=== PATIENT | female | born 1975 | race Caucasian/White ===

== ENCOUNTER → 2017-02-09 | Outpatient (CLI) | payer BC ==
[~2017-02-09] MED LIST: SULF1TAB38 PO
--- NOTE | 2017-02-12 10:39 | Diagnostic Imaging Report ---
INDICATION: Screening mammogram. COMPARISON: None, baseline. TECHNIQUE: Digital screening mammography was obtained with CAD. 3-dimensional tomosynthesis images were reviewed. FINDINGS: Scatter fibroglandular densities are present. There is no mass or suspicious calcification. IMPRESSION: Stable screening mammogram. No malignancy. ACR BI-RADS Category 1: Negative. Result letter will be mailed to the patient. Note: At least 10% of breast cancer is not imaged by mammography. Dictated by: Dictated on workstation # [id number]
== END ==
LOC: RAD 10:36
PROVIDERS: ATTEND Obstetrics & Gynecology
DX: Z12.31 Encounter for screening mammogram for malignant neoplasm of breast (principal)
CPT/HCPCS: 77067

== ENCOUNTER → 2017-02-23 | Outpatient (CLI) | payer BC ==
--- NOTE | 2017-02-23 16:13 | Diagnostic Imaging Report ---
PROCEDURE: US left lower extremity venous. TECHNIQUE: Multiple real-time grayscale images were obtained over the left lower extremity in various projections. Additional duplex Doppler and color Doppler images were also obtained. INDICATION: Left leg pain. FINDINGS: Color Doppler imaging of the left lower extremity shows normal color flow enhancement from the external iliac vein throughout the lower extremity to the ankle. Calf compression shows normal augmentation of flow at the popliteal level. IMPRESSION: Normal left lower extremity color duplex venous ultrasound. Dictated by: Dictated on workstation # [id number]
== END ==
LOC: RAD 15:15
PROVIDERS: ATTEND Family Medicine
DX: M79.662 Pain in left lower leg (principal)

== ENCOUNTER → 2017-07-25 | Outpatient (CLI) | payer BC ==
--- NOTE | 2017-07-25 16:02 | Diagnostic Imaging Report ---
PROCEDURE: US right lower extremity venous. TECHNIQUE: Multiple Real-time grayscale images were obtained over the right lower extremity in various projections. Additional duplex Doppler and color Doppler images were also obtained. INDICATION: Right leg pain. FINDINGS: Normal venous flow is seen within the right common femoral and superficial femoral vein; however, there does appear to be occlusive thrombosis of the right popliteal vein. Flow is seen within the tibioperoneal venous trunk. IMPRESSION: Focal occlusive thrombosis of the right popliteal vein. Dictated by: Dictated on workstation # [id number]
== END ==
LOC: RAD 15:18
PROVIDERS: ATTEND Nurse Practitioner Family
DX: I82.431 Acute embolism and thrombosis of right popliteal vein (principal)

== ENCOUNTER 2018-06-14 19:04 | Emergency (ER) | payer BC ==
[~2018-06-14] VITALS: Ht 175.3 cm; Wt 108.9 kg
--- OUTSIDE RECORDS SUMMARY | 2018-06-14 19:09 | XMS REPORT | Clinical Summary ---
Author Author [facility] Organization [facility] Address Unknown Phone Unavailable Care Team Providers Care Visitor Services Technician Name Role Phone Hamzah Narayan MD Unavailable Source Comments Some departments are not documenting in the electronic medical record. If you do not see the information that you expected, contact Release of Information in the Health Information Management department at [phone] for further assistance in locating additional records.[facility] Allergies No Known Allergies Medications End Date Status Medication Sig Dispensed Refills Start Date Active acetaZOLAMIDE (DIAMOX Take 500 mg 0 SEQUELS) 500 mg capsule by mouth twice daily. Active TRAMADOL HCL (TRAMADOL Take by 0 PO) mouth. Active IBUPROFEN PO Take by 0 mouth. Active NAPROXEN SODIUM (ALEVE Take by 0 PO) mouth. Active Problems Problem Noted Date Headache 07/10/2014 Papillitis 07/10/2014 Family History Medical History Relation Name Comments Unknown to Patient Brother Unknown to Patient Daughter Unknown to Patient Father Unknown to Patient Maternal Grandfather Unknown to Patient Maternal Grandmother Unknown to Patient Mother Unknown to Patient Paternal Grandfather Unknown to Patient Paternal Grandmother Unknown to Patient Son Amblyopia Neg Hx Autoimmune Disease Neg Hx Blindness Neg Hx Cancer Neg Hx Cataract Neg Hx Coronary Artery Disease Neg Hx Diabetes Neg Hx Glaucoma Neg Hx Hypertension Neg Hx Macular Degen Neg Hx Neurologic Disorder Neg Hx Retinal Detachment Neg Hx Strabismus Neg Hx Stroke Neg Hx Thyroid Disease Neg Hx Relation Name Status Comments Brother Daughter Father Maternal Grandfather Maternal Grandmother Mother Paternal Grandfather Paternal Grandmother Son Social History Date Tobacco Use Types Packs/Day Years Used Quit: 06/25/2003 Former Smoker 0.5 2 Alcohol Use Drinks/Week oz/Week Comments Yes 14 Standard 7.0 drinks or equivalent Sex Assigned at Date Recorded Not on file Industry Job Start Date Occupation Not on file Not on file Not on file Travel End Travel History Travel Start No recent travel history available. 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
--- OUTSIDE RECORDS SUMMARY | 2018-06-14 19:09 | XMS REPORT | Continuity of Care Document ---
Author Author [facility] Address Unknown Phone Unavailable Allergies Active Description Code Type Severity Reaction Onset Reported/Identified Relationship to Patient Clinical Status Yes NO KNOWN DRUG ALLERGIES NO KNOWN DRUG ALLERG UNKNOWN Yes NO KNOWN DRUG ALLERGIES UNKNOWN NO KNOWN DRUG ALLERG Yes No Known Drug Allergies [id number] Drug Allergy Unknown N/A 08/18/2012 Medications Medication Packaging Start Date Stop Date Route Dosage Sig LACTATED RINGERS 1000CC IV BAG INJ ml 10/24/2016 10/31/2016 CONTINUOUSEVERY 0 Hour CEFAZOLIN VIAL INJ 1 GM (ANCEF) GM 10/24/2016 10/24/2016 ONCE&0915 FENTANYL INJ 100 MCG/2CC VIAL MCG 10/24/2016 10/24/2016 ONCE&1042 FENTANYL INJ 100 MCG/2CC VIAL MCG 10/24/2016 10/24/2016 ONCE&1057 MORPHINE SYRINGE INJ 2 MG/CC MG 07/201610/24/2016 ONCE&1104 MORPHINE SYRINGE INJ 2 MG/CC MG 07/201610/24/2016 ONCE&1111 MORPHINE SYRINGE INJ 2 MG/CC MG 07/201610/24/2016 ONCE&1120 DIAZEPAM SYRINGE INJ 5 MG/CC (VALIUM SYRINGE) MG 10/24/2016 10/24/2016 ONCE&1142 ALPRAZOLAM TAB 0.25 MG (XANAX) MG 07/28/2017 07/28/2017 PRN ONCE NORMAL SALINE 500CC IV BAG INJ 0.9 % (NS 500CC IV BAG) ml 07/28/2017 07/28/2017 ONCE&1732 Problems Date Dx Coded Attending Type Code Diagnosis Diagnosed By 08/18/2012 Ot 564.00 UNSPEC CONSTIPATION 08/18/2012 Ot 724.2 LUMBAGO 08/18/2012 Ot 789.00 ABDOMINAL PAIN, UNSPECIFIED SITE 09/24/2012 Ot 564.00 UNSPEC CONSTIPATION 05/25/2014 FABIO TRUONG DO 784.0 HEADACHE 07/24/2014 ORENDER DO, SHAWNEE S Ot 368.9 07/24/2014 ORENDER DO, SHAWNEE S Ot 377.00 07/24/2014 ORENDER DO, SHAWNEE S Ot 377.00 06/22/2015 Ot V72.84 06/22/2015 ORENDER DO, SHAWNEE S Ot 368.9 06/22/2015 ORENDER DO, SHAWNEE S Ot 377.00 06/22/2015 ORENDER DO, SHAWNEE S Ot 377.00 07/07/2015 ORENDER DO, SHAWNEE S Ot M79.641 05/15/2016 Ot V72.84 EXAM PRE- OPERATIVE NOS 05/15/2016 ORENDER DO, SHAWNEE S Ot 368.9 VISUAL DISTURBANCE NOS 05/15/2016 ORENDER DO, SHAWNEE S Ot 377.00 PAPILLEDEMA NOS 05/15/2016 ORENDER DO, SHAWNEE S Ot 377.00 PAPILLEDEMA NOS 05/15/2016 ORENDER DO, SHAWNEE S Ot M79.641 PAIN IN RIGHT HAND 05/16/2016 ORENDER DO, SHAWNEE S Ot M54.5 LOW BACK PAIN 06/14/2016 ORENDER DO, SHAWNEE S Ot M54.5 LOW BACK PAIN 02/09/2017 Ot V72.84 EXAM PRE- OPERATIVE NOS 02/09/2017 ORENDER DO, SHAWNEE S Ot 368.9 VISUAL DISTURBANCE NOS 02/09/2017 ORENDER DO, SHAWNEE S Ot 377.00 PAPILLEDEMA NOS 02/09/2017 ORENDER DO, SHAWNEE S Ot 377.00 PAPILLEDEMA NOS 02/09/2017 ORENDER DO, SHAWNEE S Ot M79.641 PAIN IN RIGHT HAND 02/09/2017 ORENDER DO, SHAWNEE S Ot M54.5 LOW BACK PAIN 02/27/2017 LUCAS STOUT DO Ot Z12.31 ENCNTR SCREEN MAMMOGRAM FOR MALIGNANT NE 02/28/2017 LEO MEZA DO S Ot M79.662 PAIN IN LEFT LOWER LEG 03/07/2017 LEO MEZA DO S Ot M79.662 PAIN IN LEFT LOWER LEG 07/26/2017 HOWIE ESCOBAR APRN Ot I82.431 ACUTE EMBOLISM AND THROMBOSIS OF RIGHT P 07/28/2017 Raymond Santos 300.00 ANXIETY STATE, UNSPECIFIED 07/28/2017 Raymond Santos A 415.19 OTHER PULMONARY EMBOLISM AND INFARCTION 07/28/2017 Raymond Santos 453.41 ACUTE VENOUS EMBOLISM AND THROMBOSIS OF DEEP VESSELS OF PROXIMAL LOWER EXTREMITY 07/28/2017 Raymond Santos 786.5 CHEST PAIN 07/28/2017 Raymond Santos F41.9 ANXIETY DISORDER, UNSPECIFIED 07/28/2017 Raymond Santos A I26.99 OTHER PULMONARY EMBOLISM WITHOUT ACUTE COR PULMONALE 07/28/2017 Raymond Santos I82.431 ACUTE EMBOLISM AND THROMBOSIS OF RIGHT POPLITEAL VEIN 07/28/2017 Raymond Santos R07.89 OTHER CHEST PAIN 08/08/2017 HOWIE ESCOBAR APRN Ot I82.431 ACUTE EMBOLISM AND THROMBOSIS OF RIGHT P 2018 Leo Meza 401.9 UNSPECIFIED ESSENTIAL HYPERTENSION 2018 Leo Meza I10 ESSENTIAL (PRIMARY) HYPERTENSION 2018 Leo Meza 401.9 UNSPECIFIED ESSENTIAL HYPERTENSION 2018 Leo Meza I10 ESSENTIAL (PRIMARY) HYPERTENSION 06/14/2018 KIYA NAVAS DOQUELINE S Ot 368.9 VISUAL DISTURBANCE NOS 06/14/2018 FRANCOISNDER , SHAWNEE S Ot 377.00 PAPILLEDEMA NOS 06/14/2018 FRANCOISNDER , SHAWNEE S Ot 377.00 PAPILLEDEMA NOS 06/14/2018 JARRELLER KIYA JASMINESHAWNEE S Ot M79.641 PAIN IN RIGHT HAND 06/14/2018 SHAWNEE NAVAS DO S Ot M54.5 LOW BACK PAIN 06/14/2018 LUCAS STOUT DO Ot Z12.31 ENCNTR SCREEN MAMMOGRAM FOR MALIGNANT NE 06/14/2018 LEO MEZA DO Ot M79.662 PAIN IN LEFT LOWER LEG 06/14/2018 HOWIE ESCOBAR APRN Ot I82.431 ACUTE EMBOLISM AND THROMBOSIS OF RIGHT P Procedures There is no data. Results Test Result Range Hepatic Panel - 09/25/16 17:29 Albumin 3.5 g/dL 3.6-5.1 ALP 63 U/L 35-130 ALT 10 U/L 6-45 AST 16 U/L 2-40 DBil 0.1 mg/dL 0.0-0.2 GGT 35 U/L 5-40 Globulin 2.8 g/dL 2.3-3.5 TBil 0.3 mg/dL 0.2-1.2 TP 6.3 g/dL 6.0-8.3 Mycoplasma - 10/06/16 10:12 Mycoplasma Negative Negative MRSA Screen - 10/24/16 08:00 FINAL CULTURE RESULTS MRSA Negative Nasal Culture MEDIA PLATED Setup at 08:56 on 10/24/2016 Test-Serum - 10/24/16 08:43 Preg Test-S Negative Negative Surgical Pathology - 10/24/16 12:16 Surg Path Sent to [facility] - 02/23/17 13:27 Anion Gap 15 6-14 BUN 17 mg/dL 5-25 Calcium 9.2 mg/dL 8.3-10.4 Chloride 105 mmol/L 95-114 CO2 22 mEq/L 22-33 Creat 0.62 mg/dL 0.50-1.50 eGFR 105 mL/min/1.73m2 >59 Glucose 87 mg/dL 70-110 Osmo 286 280-295 Potassium 4.0 mmol/L 3.5-5.3 Sodium 138 mmol/L 134-148 Magnesium - 02/23/17 13:27 Mg++ 1.6 mg/dL 1.6-2.6 Cardiac Panel - 07/28/17 12:24 CK 47 U/L 26-174 CK-MB 0.8 ng/ml 0.0-9.2 Myoglobin 17.9 ng/ml 1.6-106.0 Troponin 0.298 ng/mL 0.000-0.400 Cardiac Panel - 07/28/17 14:50 CK 44 U/L 26-174 CK-MB 0.8 ng/ml 0.0-9.2 Myoglobin 20.2 ng/ml 1.6-106.0 Troponin 0.293 ng/mL 0.000-0.400 Protime - 09/13/17 13:39 INR 2.3 1.0-4.0 Protime 26.8 Sec 9.9-12.8 Protime - 09/28/17 15:22 INR 2.6 1.0-4.0 Protime 32.2 Sec 9.9-12.8 Protime - 10/11/17 17:40 INR 2.3 1.0-4.0 Protime 28.4 Sec 9.9-12.8 Protime - 10/30/17 18:23 INR 2.5 1.0-4.0 Protime 28.8 Sec 9.9-12.8 Protime - 11/16/17 12:24 INR 2.6 1.0-4.0 Protime 30.3 Sec 9.9-12.8 Protime - 11/29/17 07:11 INR 3.3 1.0-4.0 Protime 39.1 Sec 9.9-12.8 Protime - 12/06/17 18:38 INR 1.8 1.0-4.0 Protime 21.5 Sec 9.9-12.8 Protime - 12/17/17 18:14 INR 1.8 1.0-4.0 Protime 20.8 Sec 9.9-12.8 Protime - 12/25/17 17:50 INR 2.6 1.0-4.0 Protime 29.9 Sec 9.9-12.8 Sed Rate - 01/09/18 10:06 Sed Rate 8 mm/hr 9-15 Urine Culture - 01/09/18 10:06 PRELIM CULTURE RESULTS No Growth 24 hours FINAL CULTURE RESULTS Probable Skin Contaminant No Further Workup done MEDIA PLATED Setup at 15:21 on 01/09/2018 CULTURE SOURCE void [employer] [facility] Spotted Fever, IgM - 01/09[facility]18 [facility] 0.40 INDEX 0.00-0.89 Protime - 01/21/18 18:50 INR 2.1 1.0-4.0 Protime 24.4 Sec 9.9-12.8 Protime - 02/04/18 07:45 INR 2.1 1.0-4.0 Protime 24.1 Sec 9.9-12.8 Protime - 02/27/18 19:07 INR 2.4 1.0-4.0 Protime 27.7 Sec 9.9-12.8 Protime - 04/02/18 16:47 INR 2.4 1.0-4.0 Protime 28.2 Sec 9.9-12.8 Protime - 04/22/18 17:56 INR 2.9 1.0-4.0 Protime 34.0 Sec 9.9-12.8 Protime - 05/01/18 17:34 INR 2.3 1.0-4.0 Protime 26.7 Sec 9.9-12.8 Lipid Panel - 05/06/18 10:39 C/HDL 2.8 3.7-6.7 Cholesterol 131 mg/dL 100-240 HDL 47 mg/dL 30-85 LDL-Calculated 58 mg/dL 0-100 Trig 131 mg/dL 35-160 VLDL 26 mg/dL 0-42 Protime - 05/20/18 17:34 INR 2.5 1.0-4.0 Protime 30.2 Sec 9.9-12.8 Protime - 06/11/18 12:44 INR 2.0 1.0-4.0 Protime 23.2 Sec 9.9-12.8 Encounters ACCT No. Visit Date/Time Discharge Status Pt. Type Provider Facility Loc./Unit Complaint [id number] 05/25/2014 12:46:00 05/25/2014 23:59:59 CLS Outpatient FABIO TRUONG DO [id number] 06/14/2018 17:47:00 06/14/2018 18:03:00 DIS Outpatient Heather Grimaldo [id number] 06/11/2018 12:32:00 06/11/2018 23:59:00 DIS Outpatient Anis, Amir [id number] 05/20/2018 17:33:00 05/20/2018 23:59:00 DIS Outpatient Anis, Amir [id number] 2018 10:37:00 2018 23:59:00 DIS Outpatient Leo Meza [id number] 05/01/2018 17:32:00 05/01/2018 23:59:00 DIS Outpatient Anis, Amir [id number] 04/22/2018 17:55:00 04/22/2018 23:59:00 DIS Outpatient Anis, Amir [id number] 04/02/2018 16:46:00 04/02/2018 23:59:00 DIS Outpatient Anis, Amir [id number] 02/27/2018 19:04:00 02/27/2018 23:59:00 DIS Outpatient Anis, Amir [id number] 02/04/2018 07:38:00 02/04/2018 23:59:00 DIS Outpatient ISRAEL TAVERAS [id number] 01/21/2018 19:28:00 01/21/2018 23:59:00 DIS Outpatient Anis, Amir [id number] 01/09/2018 09:48:00 01/09/2018 23:59:00 DIS Outpatient Leo Meza [id number] 01/03/2018 12:25:00 01/03/2018 23:59:00 DIS Outpatient Anis, Amir [id number] 12/25/2017 17:48:00 12/25/2017 23:59:00 DIS Outpatient Anis, Amir [id number] 12/17/2017 18:13:00 12/17/2017 23:59:00 DIS Outpatient Anis, Amir [id number] 12/06/2017 18:37:00 12/06/2017 23:59:00 DIS Outpatient Anis, Amir [id number] 11/29/2017 07:08:00 11/29/2017 23:59:00 DIS Outpatient MARQUEZ, DULCE MARIA [id number] 11/16/2017 12:21:00 11/16/2017 23:59:00 DIS Outpatient MARQUEZ, DULCE MARIA [id number] 10/30/2017 18:21:00 10/30/2017 23:59:00 DIS Outpatient Anis, Amir [id number] 10/11/2017 17:38:00 10/11/2017 23:59:00 DIS Outpatient Anis, Amir [id number] 09/28/2017 15:17:00 09/28/2017 23:59:00 DIS Outpatient Anis, Amir [id number] 09/13/2017 13:31:00 09/13/2017 23:59:00 DIS Outpatient Anis, Amir [id number] 07/28/2017 11:36:00 07/28/2017 17:25:00 DIS Outpatient [facility] [id number] 02/23/2017 13:22:00 02/23/2017 23:59:00 DIS Outpatient Ann Romero [id number] 10/30/2016 16:26:00 10/30/2016 23:59:00 DIS Outpatient Olga Noriega [id number] 10/24/2016 00:00:00 10/24/2016 12:35:00 DIS Outpatient Olga Noriega [id number] 10/19/2016 13:54:00 10/19/2016 13:54:00 CAN Outpatient Olga Noriega [id number] 10/06/2016 10:07:00 10/06/2016 23:59:00 DIS Outpatient Ann Romero [id number] 09/25/2016 17:13:00 09/25/2016 23:59:00 DIS Outpatient Olga Noriega [id number] 09/20/2016 10:02:00 09/20/2016 23:59:00 DIS Outpatient Leo Meza [id number] 10/23/2016 09:31:26 Document Registration [id number] 07/25/2017 15:18:00 07/25/2017 23:59:59 CLS Outpatient LUZHOWIE APRN [facility] RAD RIGHT LOWER LEG PAIN [id number] 02/23/2017 15:15:00 02/23/2017 23:59:59 CLS Outpatient LIZLEO KAMARA DO S [facility] RAD LEFT LEG PAIN [id number] 02/09/2017 10:36:00 02/09/2017 23:59:59 CLS Outpatient LUCAS STOUT DO [facility] RAD SCREENING [id number] 05/15/2016 13:50:00 05/15/2016 23:59:59 CLS Outpatient ORENDER , SHAWNEE S [facility] RAD M54.5 [id number] 06/22/2015 08:10:00 06/22/2015 23:59:59 CLS Outpatient ORENDER DO, SHAWNEE S [facility] RAD THUMB,WRIST,HAND PAIN [id number] 07/01/2014 15:34:00 07/01/2014 23:59:59 CLS Outpatient ORENDER DO, SHAWNEE S [facility] RAD CEPHALGIA PAPILLEDEMA [id number] 06/29/2014 15:16:00 06/29/2014 23:59:59 CLS Outpatient FRANCOISNDER , SHAWNEE S [facility] RAD PAPILLEDMA,VISION CHANGES [id number] 06/14/2018 19:05:00 ACT Emergency RENE CASTANEDA DO [facility] ER LT LEG SWELLING,HX OF BLOOD CLOTS [id number] 09/24/2012 12:31:00 Document Registration [id number] 09/19/2012 07:47:00 Document Registration [id number] 08/18/2012 09:50:00 Document Registration 06/201612/01/2016 20:07:00 12/01/2016 23:59:59 Shawnee Patel
--- NOTE | 2018-06-14 20:26 | ED Lower Extremity ---
General Chief Complaint: Lower Extremity Stated Complaint: LT LEG SWELLING,HX OF BLOOD CLOTS Nursing Triage Note: Pt arrived with left leg pain and possible DVT. Pt has past medical history of blood clots. Pt is on warfarin and has taken it constantly and daily. Pt stated she has not missed any doses. Pt stated her left thigh had a bug bite and was put on doxy. When she went to doctor they stated she had mild staph infection. Pt stated pain started about a week ago. It is anterior left thigh that has lump, but same leg as bug bite/staph. Pt stated pain with cramping is same pain as when she had previous blood clot. Nursing Sepsis Screen: No Definite Risk Allergies and Home Medications Allergies Coded Allergies: No Known Drug Allergies (Unverified , 08/18/12) Home Medications Trimethoprim/Sulfamethoxazole 1 Ea Tablet, 1 EA PO BID, (Reported) Past Dctebnt-Xbwlfn-Evuhxa Hx Patient Social History Alcohol Use: Occasionally Uses Recreational Drug Use: No Smoking Status: Never a Smoker Recent Foreign Travel: No Contact w/Someone Who Travel: No Recent Infectious Disease Expo: No Recent Hopitalizations: No Physical Abuse: No Sexual Abuse: No Mistreated: No Fear: No Seasonal Allergies Seasonal Allergies: No Past Medical History Surgeries: Yes Gallbladder Respiratory: No Cardiac: No Neurological: No Last Menstrual Period: May 24, 2018 Reproductive Disorders: No Genitourinary: No Gastrointestinal: No Musculoskeletal: No Endocrine: No HEENT: No Cancer: No Psychosocial: No Integumentary: No Physical Exam Vital Signs Vital Signs - First Documented 06/14/18 19:12 Temp 98.0 Pulse 88 Resp 20 B/P (MAP) 136/91 (106) Pulse Ox 98 O2 Delivery Room Air Capillary Refill : Less Than 3 Seconds Height, Weight, BMI Height: 5'9.00" Weight: 240lbs. oz. 108.367025vk; BMI Method:Stated Progress/Results/Core Measures Results/Orders Vital Signs/I&O 06/14/18 19:12 Temp 98.0 Pulse 88 Resp 20 B/P (MAP) 136/91 (106) Pulse Ox 98 O2 Delivery Room Air Blood Pressure Mean: 106 Departure Impression Primary Impression: PAIN AND SWELLNG OF LEFT LEG Disposition: 01 HOME, SELF-CARE Condition: Stable Departure-Patient Inst. Referrals: BONILLA VALERIO DO (PCP/Family) Primary Care Physician Patient Instructions: NO INSTRUCTIONS GIVEN Add. Discharge Instructions: CONTINUE YOUR MEDICATIONS PRESCRIBED FOLLOW UP WITH DR. VALERIO ON SUNDAY OR GO TO A FACILITY THAT HAS ULTRASOUND CAPABILITY FOR FURTHER EVALUATION All discharge instructions reviewed with patient and/or family. Voiced understanding. RENE CASTANEDA DO Jun 14, 2018 20:26
[2018-06-14 20:30] VITALS: BP 127/88
== END 2018-06-14 20:30 | disposition home or self-care (01) ==
LOC: EDUNIT# 19:04 → ER 19:05
DX: M79.605 Pain in left leg (principal); M79.89 Other specified soft tissue disorders; Z79.01 Long term (current) use of anticoagulants
CPT/HCPCS: 99283

== ENCOUNTER 2019-02-12 15:14 | Outpatient (RCR) | payer BC ==
[2018-12-24 15:25] LABS: BASOPHILS % (AUTO) 0 % (0-10); EOSINOPHILS # (AUTO) 0.1 10^3/uL (0.0-0.3); EOSINOPHILS % (AUTO) 1 % (0-10); HEMATOCRIT 37 % (35-52); HEMOGLOBIN 11.7 G/DL (11.5-16.0); LYMPHOCYTES # (AUTO) 2.3 X 10^3 (1.0-4.0); LYMPHOCYTES % (AUTO) 25 % (12-44); MEAN CORPUSCULAR HEMOGLOBIN 27 PG (25-34); MEAN CORPUSCULAR HGB CONC 32 G/DL (32-36); MEAN CORPUSCULAR VOLUME 86 FL (80-99); MEAN PLATELET VOLUME 9.3 FL (7.4-10.4); MONOCYTES # (AUTO) 0.6 X 10^3 (0.0-1.0); MONOCYTES % (AUTO) 6 % (0-12); NEUTROPHILS # (AUTO) 6.1 X 10^3 (1.8-7.8); NEUTROPHILS % (AUTO) 67 % (42-75); PLATELET COUNT 304 10^3/uL (130-400); RED CELL DISTRIBUTION WIDTH 14.6 % (10.0-14.5); WHITE BLOOD COUNT 9.1 10^3/uL (4.3-11.0)
[2018-12-24 15:54] LABS: INR 2.2 (0.8-1.4); PROTHROMBIN TIME PATIENT 25.6 SEC (12.2-14.7)
[2019-02-12 16:03] LABS: INR 1.8 (0.8-1.4); PROTHROMBIN TIME PATIENT 21.7 SEC (12.2-14.7)
== END 2019-03-24 | disposition home or self-care (01) ==
LOC: ONC 15:14
PROVIDERS: ATTEND Internal Medicine Hematology & Oncology
DX: Z09 Encounter for follow-up examination after completed treatment for conditions other than malignant neoplasm (principal); Z86.711 Personal history of pulmonary embolism; Z86.718 Personal history of other venous thrombosis and embolism; I10 Essential (primary) hypertension; N92.0 Excessive and frequent menstruation with regular cycle; E66.9 Obesity, unspecified; Z68.37 Body mass index [BMI] 37.0-37.9, adult; Z79.01 Long term (current) use of anticoagulants; Z79.899 Other long term (current) drug therapy; Z79.82 Long term (current) use of aspirin
CPT/HCPCS: 36415; 81241; 82728; 85025; 85610; 99214

== ENCOUNTER → 2019-07-02 | Outpatient (CLI) | payer BC ==
[2019-07-02 09:56] LABS: BASOPHILS % (AUTO) 0 % (0-10); EOSINOPHILS # (AUTO) 0.3 10^3/uL (0.0-0.3); EOSINOPHILS % (AUTO) 2 % (0-10); HEMATOCRIT 39 % (35-52); HEMOGLOBIN 12.6 G/DL (11.5-16.0); LYMPHOCYTES % (AUTO) 20 % (12-44); MEAN CORPUSCULAR HEMOGLOBIN 28 PG (25-34); MEAN CORPUSCULAR HGB CONC 32 G/DL (32-36); MEAN CORPUSCULAR VOLUME 88 FL (80-99); MEAN PLATELET VOLUME 9.2 FL (7.4-10.4); MONOCYTES # (AUTO) 0.8 X 10^3 (0.0-1.0); MONOCYTES % (AUTO) 8 % (0-12); NEUTROPHILS # (AUTO) 7.1 X 10^3 (1.8-7.8); NEUTROPHILS % (AUTO) 70 % (42-75); PLATELET COUNT 251 10^3/uL (130-400); RED CELL DISTRIBUTION WIDTH 14.7 % (10.0-14.5); WHITE BLOOD COUNT 10.2 10^3/uL (4.3-11.0)
[2019-07-02 10:09] LABS: INR 2.3 (0.8-1.4); PROTHROMBIN TIME PATIENT 26.1 SEC (12.2-14.7)
[2019-07-02 10:17] LABS: ALANINE AMINOTRANSFERASE 22 U/L (0-55); ALBUMIN 3.6 GM/DL (3.2-4.5); ALKALINE PHOSPHATASE 72 U/L (40-136); BILIRUBIN,TOTAL 0.2 MG/DL (0.1-1.0); BUN/CREATININE RATIO 20; CALCIUM 8.5 MG/DL (8.5-10.1); CARBON DIOXIDE 21 MMOL/L (21-32); CHLORIDE 108 MMOL/L (98-107); CREATININE SERUM 0.69 MG/DL (0.60-1.30); GFR ESTIMATED > 60; GLUCOSE 100 MG/DL (70-105); SODIUM 138 MMOL/L (135-145); TOTAL PROTEIN 6.8 GM/DL (6.4-8.2)
== END ==
LOC: EDSTATUS 03-25 09:13 → ONC 09:30
PROVIDERS: ATTEND Internal Medicine Hematology & Oncology
DX: Z09 Encounter for follow-up examination after completed treatment for conditions other than malignant neoplasm (principal); Z86.711 Personal history of pulmonary embolism; Z86.718 Personal history of other venous thrombosis and embolism; I10 Essential (primary) hypertension; N92.0 Excessive and frequent menstruation with regular cycle; E66.9 Obesity, unspecified; Z68.37 Body mass index [BMI] 37.0-37.9, adult; Z79.01 Long term (current) use of anticoagulants; Z79.899 Other long term (current) drug therapy; Z79.82 Long term (current) use of aspirin
CPT/HCPCS: 80053; 85025; 85610; 99213

== ENCOUNTER → 2019-07-18 | Outpatient (CLI) | payer BC ==
--- NOTE | 2019-07-18 15:47 | Diagnostic Imaging Report ---
EXAMINATION: US Right Lower Extremity Venous Duplex. TECHNIQUE: Multiple real-time grayscale images were obtained over the right lower extremity in various projections. Additional spectral analysis and color Doppler duplex images were also obtained. HISTORY: Pain and swelling in the right leg. COMPARISON: 07/25/2017. FINDINGS: The right common femoral vein, deep femoral vein, superficial femoral vein and popliteal vein are patent with normal harding scale and doppler appearance. There is normal respiratory variation and augmentation. IMPRESSION: 1. No DVT of the right lower extremity. Dictated by: Dictated on workstation # [id number]
== END ==
LOC: RAD 13:46
PROVIDERS: ATTEND Nurse Practitioner Family
DX: M79.604 Pain in right leg (principal); Z79.01 Long term (current) use of anticoagulants

== ENCOUNTER → 2019-12-25 | Outpatient (CLI) | payer BC ==
--- NOTE | 2019-12-25 12:29 | Diagnostic Imaging Report ---
PROCEDURE: US Non-ob pelvis comp/trans. TECHNIQUE: Multiple realtime grayscale images were obtained of the pelvis in various projections endovaginally. Transabdominal imaging was also performed. INDICATION: Menorrhagia. The uterus is retroverted measuring 8.7 x 4.9 x 6.3 cm. Endometrium is abnormally thickened at 18 mm. There is significant heterogeneity to the endometrium but no abnormal vascularity. There is a uterine fibroid present posteriorly measuring 2.7 cm. Right ovary measures 1.4 x 1.2 x 1.5 cm and the left ovary measures 3.1 x 2.1 x 1.7 cm. There is blood flow to the ovaries. No adnexal mass is seen. There is a small amount of free fluid present in the cul-de-sac. IMPRESSION: 1. Uterine fibroid. 2. Abnormal appearance to the endometrium which is thickened and heterogeneous. While this could be secondary to hyperplasia, endometrial neoplasia cannot be entirely excluded. Dictated by: Dictated on workstation # [id number]
== END ==
LOC: RAD 09:30
PROVIDERS: ATTEND Obstetrics & Gynecology
DX: D25.9 Leiomyoma of uterus, unspecified (principal); N92.0 Excessive and frequent menstruation with regular cycle
CPT/HCPCS: 76830; 76856

== ENCOUNTER → 2020-01-20 | Outpatient (CLI) | payer BC ==
--- NOTE | 2020-01-21 09:50 | Diagnostic Imaging Report ---
EXAMINATION: Digital mammogram bilateral screening with CAD. INDICATION: Screening. COMPARISON: This study was compared to the prior exam of 02/09/2017. PERSONAL HISTORY: At this time, there are no current complaints. FINDINGS: There are scattered fibroglandular densities in both breasts which could obscure a lesion. Overall, there does not appear to have been any significant change when compared to the prior exam. No primary or secondary sign of malignancy is noted. IMPRESSION: 1. There is no evidence for malignancy. 2. The patient should have her annual bilateral screening mammogram on schedule in December 2020. ACR BI-RADS Category 1: Negative. Result letter will be mailed to the patient. Note: At least 10% of breast cancer is not imaged by mammography. Dictated by: Dictated on workstation # [id number]
== END ==
LOC: RAD 08:41
PROVIDERS: ATTEND Obstetrics & Gynecology
DX: Z12.31 Encounter for screening mammogram for malignant neoplasm of breast (principal)
CPT/HCPCS: 77063; 77067

== ENCOUNTER → 2020-02-11 | Outpatient (CLI) | payer BC ==
[2020-02-12 07:41] LABS: HEMATOCRIT 40 % (35-52); LYMPHOCYTES % (AUTO) 33 % (12-44); MEAN CORPUSCULAR HEMOGLOBIN 30 PG (25-34); MEAN CORPUSCULAR HGB CONC 33 G/DL (32-36); MEAN CORPUSCULAR VOLUME 91 FL (80-99); MEAN PLATELET VOLUME 8.9 FL (7.4-10.4); MONOCYTES % (AUTO) 8 % (0-12); NEUTROPHILS % (AUTO) 57 % (42-75); PLATELET COUNT 238 10^3/uL (130-400); RED CELL DISTRIBUTION WIDTH 14.5 % (10.0-14.5)
[2020-02-12 07:42] LABS: BASOPHILS % (AUTO) 0 % (0-10); EOSINOPHILS # (AUTO) 0.2 10^3/uL (0.0-0.3); EOSINOPHILS % (AUTO) 2 % (0-10); MONOCYTES # (AUTO) 0.7 X 10^3 (0.0-1.0); NEUTROPHILS # (AUTO) 5.1 X 10^3 (1.8-7.8)
[2020-02-12 07:43] LABS: BUN/CREATININE RATIO 22; CARBON DIOXIDE 21 MMOL/L (21-32); CHLORIDE 110 MMOL/L (98-107); CREATININE SERUM 0.64 MG/DL (0.60-1.30); GFR ESTIMATED > 60; GLUCOSE 99 MG/DL (70-105); POTASSIUM 4.2 MMOL/L (3.6-5.0); SODIUM 139 MMOL/L (135-145)
[2020-02-12 07:45] LABS: ALANINE AMINOTRANSFERASE 25 U/L (0-55); ALBUMIN 3.4 GM/DL (3.2-4.5); ALKALINE PHOSPHATASE 57 U/L (40-136); BILIRUBIN,TOTAL 0.3 MG/DL (0.1-1.0); CALCIUM 8.2 MG/DL (8.5-10.1); TOTAL PROTEIN 6.7 GM/DL (6.4-8.2)
== END ==
LOC: ONC 09:00
PROVIDERS: ATTEND Internal Medicine Hematology & Oncology
DX: I82.401 Acute embolism and thrombosis of unspecified deep veins of right lower extremity (principal); K64.5 Perianal venous thrombosis; D68.59 Other primary thrombophilia; I10 Essential (primary) hypertension; E61.1 Iron deficiency; Z79.01 Long term (current) use of anticoagulants; Z86.718 Personal history of other venous thrombosis and embolism; Z95.5 Presence of coronary angioplasty implant and graft
CPT/HCPCS: 80053; 82728; 85025; G0463; 99213

== ENCOUNTER → 2020-08-18 | Outpatient (CLI) | payer BC ==
[2020-08-18 13:48] LABS: BASOPHILS % (AUTO) 0 % (0-10); EOSINOPHILS # (AUTO) 0.1 10^3/uL (0.0-0.3); EOSINOPHILS % (AUTO) 1 % (0-10); HEMATOCRIT 34 % (35-52); HEMOGLOBIN 10.9 g/dL (11.5-16.0); LYMPHOCYTES # (AUTO) 2.3 10^3/uL (1.0-4.0); LYMPHOCYTES % (AUTO) 24 % (12-44); MEAN CORPUSCULAR HEMOGLOBIN 28 pg (25-34); MEAN CORPUSCULAR HGB CONC 32 g/dL (32-36); MEAN CORPUSCULAR VOLUME 87 fL (80-99); MEAN PLATELET VOLUME 9.2 fL (9.0-12.2); MONOCYTES # (AUTO) 0.6 10^3/uL (0.0-1.0); MONOCYTES % (AUTO) 7 % (0-12); NEUTROPHILS # (AUTO) 6.5 10^3/uL (1.8-7.8); NEUTROPHILS % (AUTO) 67 % (42-75); PLATELET COUNT 248 10^3/uL (130-400); WHITE BLOOD COUNT 9.7 10^3/uL (4.3-11.0)
[2020-08-18 14:05] LABS: INR 2.3 (0.8-1.4); PROTHROMBIN TIME PATIENT 25.4 SEC (12.2-14.7)
[2020-08-18 14:10] LABS: ALANINE AMINOTRANSFERASE 15 U/L (0-55); ALBUMIN 3.4 GM/DL (3.2-4.5); ALKALINE PHOSPHATASE 70 U/L (40-136); BILIRUBIN,TOTAL 0.2 MG/DL (0.1-1.0); BUN/CREATININE RATIO 20; CALCIUM 8.2 MG/DL (8.5-10.1); CARBON DIOXIDE 20 MMOL/L (21-32); CHLORIDE 107 MMOL/L (98-107); CREATININE SERUM 0.65 MG/DL (0.60-1.30); GFR ESTIMATED > 60; GLUCOSE 92 MG/DL (70-105); SODIUM 136 MMOL/L (135-145); TOTAL PROTEIN 6.6 GM/DL (6.4-8.2)
== END ==
LOC: ONC 13:32
PROVIDERS: ATTEND Internal Medicine Hematology & Oncology
DX: G08 Intracranial and intraspinal phlebitis and thrombophlebitis (principal); I82.401 Acute embolism and thrombosis of unspecified deep veins of right lower extremity; I26.99 Other pulmonary embolism without acute cor pulmonale; D50.9 Iron deficiency anemia, unspecified; I10 Essential (primary) hypertension; Z79.01 Long term (current) use of anticoagulants
CPT/HCPCS: 80053; 82728; 85025; 85610; G0463; 99213

== ENCOUNTER → 2021-05-05 | Outpatient (CLI) | payer BC ==
[2021-05-05 15:05] LABS: BASOPHILS % (AUTO) 0 % (0-10); EOSINOPHILS # (AUTO) 0.2 10^3/uL (0.0-0.3); EOSINOPHILS % (AUTO) 3 % (0-10); HEMATOCRIT 41 % (35-52); HEMOGLOBIN 12.8 g/dL (11.5-16.0); LYMPHOCYTES # (AUTO) 2.1 10^3/uL (1.0-4.0); LYMPHOCYTES % (AUTO) 24 % (12-44); MEAN CORPUSCULAR HEMOGLOBIN 28 pg (25-34); MEAN CORPUSCULAR HGB CONC 32 g/dL (32-36); MEAN CORPUSCULAR VOLUME 88 fL (80-99); MONOCYTES # (AUTO) 0.5 10^3/uL (0.0-1.0); MONOCYTES % (AUTO) 6 % (0-12); NEUTROPHILS # (AUTO) 6.1 10^3/uL (1.8-7.8); NEUTROPHILS % (AUTO) 68 % (42-75); PLATELET COUNT 291 10^3/uL (130-400)
[2021-05-05 15:21] LABS: INR 1.9 (0.8-1.4); PROTHROMBIN TIME PATIENT 22.3 SEC (12.2-14.7)
[2021-05-05 15:22] LABS: ALBUMIN 3.8 GM/DL (3.2-4.5); BILIRUBIN,TOTAL 0.3 MG/DL (0.1-1.0); CREATININE SERUM 0.69 MG/DL (0.60-1.30); POTASSIUM 3.7 MMOL/L (3.6-5.0); TOTAL PROTEIN 7.1 GM/DL (6.4-8.2)
== END ==
LOC: ONC 15:01
PROVIDERS: ATTEND Internal Medicine Hematology & Oncology
DX: D50.0 Iron deficiency anemia secondary to blood loss (chronic) (principal); I10 Essential (primary) hypertension; E66.9 Obesity, unspecified; Z79.01 Long term (current) use of anticoagulants; Z86.718 Personal history of other venous thrombosis and embolism
CPT/HCPCS: 80053; 82728; 85025; 85610; G0463; 99213

== ENCOUNTER → 2022-03-28 | Outpatient (CLI) | payer BC ==
--- NOTE | 2022-03-28 10:26 | Diagnostic Imaging Report ---
INDICATION: Knee pain. EXAMINATION: Left knee MRI without contrast on 03/28/2022. FINDINGS: There are changes of tendinosis throughout the patellar tendon with no focal tears. The visualized distal quadriceps tendon is intact. There is diffuse degenerative signal throughout the ACL which is intact. The PCL is intact. The MCL is somewhat thickened, perhaps due to an old injury, but appears intact. Minimal adjacent edema proximally could represent an MCL sprain. There is no discontinuity. The lateral collateral ligamentous complex appears intact. There is myxoid degeneration throughout the posterior horn of the medial meniscus with no discrete tear appreciated. The lateral meniscus demonstrates a focal tear within the anterior horn extending predominantly to the femoral surface. A horizontal component extends into the meniscal body and posterior horn. There is moderate loss of cartilage in the medial compartment. There is mild thinning of the cartilage in the lateral joint space. There is mild fissuring of the cartilage over the patella. There is a moderate-sized joint effusion with a tiny slit-like Schwarz's cyst. There is no acute osseous abnormality. IMPRESSION: 1. Tendinosis of the patellar tendon with diffuse degenerative signal throughout the ACL which is intact. 2. Possible mild sprain of the MCL with thickening suggesting a prior injury. The remaining ligaments and tendons are intact. 3. Tear of the anterior horn and body of the lateral meniscus with the medial meniscus intact. 4. Tricompartmental degenerative disease. Dictated by: Dictated on workstation # [id number]
== END ==
LOC: RAD 08:15
PROVIDERS: ATTEND Family Medicine Sports Medicine
DX: M23.262 Derangement of other lateral meniscus due to old tear or injury, left knee (principal); M17.12 Unilateral primary osteoarthritis, left knee; M67.864 Other specified disorders of tendon, left knee; M23.204 Derangement of unspecified medial meniscus due to old tear or injury, left knee
CPT/HCPCS: 73721